=== PATIENT | female | born 1985 | race Caucasian/White ===

== ENCOUNTER 2023-02-08 13:16 | Outpatient (CLI) | payer OTHER | END 2023-02-08 19:28 | disposition short-term general hospital (02) | LOC: SRD 13:16 | PROVIDERS: ATTEND Specialist | DX: N97.9 Female infertility, unspecified (principal); N92.6 Irregular menstruation, unspecified; Q51.9 Congenital malformation of uterus and cervix, unspecified | CPT/HCPCS: 74740; 58340; Q9967; C1751 ==